=== PATIENT | male | born 1955 | race Caucasian/White ===

== ENCOUNTER 2017-04-01 15:05 | Inpatient (IN) | payer MEDICAID, OTHER ==
[~2017-04-01] VITALS: Ht 167.6 cm; Wt 66.7 kg
[2017-04-01 15:58] VITALS: BP 112/79
[2017-04-01 16:34] LABS: WHITE BLOOD COUNT (AUTO) 6.6 K/uL (4.8-10.8)
[2017-04-01 16:37] LABS: HEMATOCRIT 38.7 % (36-52); HEMOGLOBIN 12.2 g/dL (12.0-18.0); MEAN CORPUSCULAR HEMOGLOBIN 30 pg (27-31); MEAN CORPUSCULAR HGB CONC 32 g/dL (33-37); MEAN CORPUSCULAR VOLUME 96 fL (80-94); PLATELET COUNT (AUTO) 203 K/uL (140-450); RED BLOOD CELL COUNT(AUTO) 4.02 MIL/uL (4.20-6.10); RED CELL DISTRIBUTION WIDTH 14.2 % (11.6-13.7)
[2017-04-01 16:49] LABS: EOSINOPHILS % (MANUAL) 21 % (0-4); LYMPHOCYTES % (MANUAL) 12 % (20-46); MONOCYTES % (MANUAL) 5 % (5-12)
[2017-04-01 16:52] LABS: ANION GAP 13.4 (8-16); CARBON DIOXIDE 25.8 mmol/L (21-32); CREATININE 0.9 mg/dL (0.7-1.3); POTASSIUM 4.2 mmol/L (3.5-5.1)
[2017-04-01 17:01] LABS: ALBUMIN 3.4 g/dL (3.4-5.0)
--- NOTE | 2017-04-01 17:09 | NUR ---
Patient ambulated to bed 08.
--- NOTE | 2017-04-01 17:30 | NUR ---
61 M C/O 6/10 "PRESSURE" ABDOMINAL PAIN/DISTENTION X3 MONTHS AAOX4 WITH EVEN AND STEADY GAIT; LUNGS CLEAR BL; RR ARE EVEN AND UNLABORED; PT DENIES ANY FEVER, CP, SOB, OR COUGH AT THIS TIME; VSS; PATIENT POSITIONED FOR COMFORT; HOB ELEVATED; BEDRAILS UP X2; BED DOWN. ER MD MADE AWARE OF PT STATUS.
--- NOTE | 2017-04-01 18:16 | NUR ---
pt denies any pain at this time; vss; pt resting in [facility]; will continue to monitor
--- NOTE | 2017-04-01 18:23 | NUR ---
Patient going to CT via wheelchair per tech.
--- NOTE | 2017-04-01 18:32 | NUR ---
PT RETURNED FROM CT VIA W/C ACCOMPANIED BY DIRECTOR OF STRATEGIC MARKETING
--- NOTE | 2017-04-01 19:15 | NUR ---
GOT REPORT FROM CHEMA GROVER. PT. RESTING BED, NO S/SX OF DISTRESS AT THIS TIME.
[2017-04-01] MEDS ORDERED: HYDROcodone/APAP 7.5/325 MG 1 TAB PO PRN (19:20)
[2017-04-01] MEDS ORDERED: ONDANSETRON 4 MG/2 ML VIAL IVP PRN (19:20)
[2017-04-01] MEDS ORDERED: ACETAMINOPHEN 325 MG TAB PO PRN (19:20)
[2017-04-01 19:35] LABS: APPEARANCE,URINE CLEAR (CLEAR); BLOOD, URINE NEGATIVE (NEGATIVE); COLOR,URINE YELLOW (YELLOW); LEUKOCYTE ESTERASE ,URINE NEGATIVE (NEGATIVE); NITRITE, URINE NEGATIVE (NEGATIVE); PH,URINE 5.5 (5.0-9.0); UGLUCOSE NEGATIVE (NEGATIVE)
[2017-04-01 19:36] LABS: BILIRUBIN,URINE NEGATIVE (NEGATIVE)
[2017-04-01] MEDS ORDERED: ALBUTEROL SULFATE/IPRATROPIU 3 ML SOL IH PRN (19:55)
--- NOTE | 2017-04-01 20:00 | NUR ---
Patient will be admitted to care of . Admited to TELEMETRY. Will go to [id number]. Belongings list completed. Report to CHEMA SANCHEZ.
[2017-04-01 20:10] VITALS: BP 118/89
--- NOTE | 2017-04-01 20:10 | NUR ---
Admitted from ER, with chief complaint of ABD DISTENTION, DX SHORTNESS OF BREATH AND ABDOMINAL DISTENTION. ADMISSION ASSESSMENT AND HISTORY TAKEN USING DULSER PHONE, RUY, [id number]. 61 y/o, Male, Cooperative, AOX4, AMBULATORY, ABLE TO VERBALIZE NEEDS. PT C/O ABD DISTENTION THAT PT STATED TO HAVE STARTED 11 WEEKS AGO. PT REPORTS THAT HE WENT TO [facility] ER 11 WEEKS AGO WHERE THEY "TOOK OUT 10 QUARTS OF WATER FROM MY LIVER." PT DENIES CHEST PAIN, SOB OR S/S OF ACUTE DISTRESS AT THIS TIME. PT DENIES NAUSEA, VOMITING. PT STATED LAST BM THIS MORNING. IV ACCESS ASYMPTOMATIC, PATENT AND INTACT. WILL ADMINISTER MAINTENANCE FLUIDS ORDERED. DISCUSSED AND REVIEWED PLAN OF CARE WITH PT. PT ENCOURAGED TO USE IS 10X EVERY HOUR, DEMONSTRATED USE WELL. PT VERBALIZED UNDERSTANDING. oriented to call light, bed, phone,television, bathroom, smoking policy, visiting hours, procedures, ID bracelet on. Belongings list checked. ALL NEEDS MET. SAFETY MEASURES ENSURED. CALL LIGHT WITHIN REACH. WILL CONTINUE TO MONITOR.
[2017-04-01 20:26] LABS: PROTHROMBIN TIME 11.9 secs (10.8-13.4)
[2017-04-01 20:41] LABS: CHOL/HDL RATIO 4.2 (1-4.5); FREE T4 (FREE THYROXINE) 1.04 ng/dL (0.76-1.46); MAGNESIUM 1.9 mg/dL (1.8-2.4); PHOSPHORUS 3.9 mg/dL (2.5-4.9); THYROID STIMULATING HORMONE 3.73 uIU/mL (0.34-3.74)
[2017-04-01] MEDS: DOCUSATE SODIUM 100 MG GELCAP PO SCH (21:08)
[2017-04-01] MEDS: NACL 0.9% 1,000 ML IV SCH (21:16)
--- NOTE | 2017-04-01 21:17 | NUR ---
DUE MEDS ADMINISTERED WITH EDUCATION. PT VERBALIZED UNDERSTANDING, TOLERATED MEDS WELL. IVPB INFUSING WELL. ALL NEEDS MET. SAFETY MEASURES ENSURED. CALL LIGHT WITHIN REACH. WILL CONTINUE TO MONITOR.
[2017-04-01] MEDS ORDERED: cefTRIAXone 1,000 MG VIAL ONE (21:18)
[2017-04-01 22:47] LABS: BARBITURATE, URINE NEG. ng/ml (NEG <=200); BENZODIAZEPINE, URINE NEG. ng/mL (NEG <=200); CANNABINOID, URINE NEG. ng/mL (NEG <=50); COCAINE, URINE NEG. ng/mL (NEG <=300); OPIATE, URINE NEG. ng/mL (NEG <=2000); PHENCYCLIDINE SCREEN,URINE NEG. ng/mL (NEG <=25)
[2017-04-01] MEDS: FUROSEMIDE 40 MG TAB PO SCH (23:25)
[2017-04-02] VITALS: BP 107/72
--- NOTE | 2017-04-02 | NUR ---
CALLED DR KANG, CLARIFIED ORDER OF LASIX 40MG PO DUE AT THIS TIME. INSTRUCTED BY TO ASK PT IF HE TOOK LASIX AT HOME. ASKED PT IF HE TOOK LASIX AT HOME, PT STATED NO. MD TO ORDER LASIX FOR TONIGHT.
[2017-04-02] MEDS ORDERED: FUROSEMIDE 20 MG TAB PO ONE (01:00)
--- NOTE | 2017-04-02 01:11 | NUR ---
ADMINISTERED DUE MED LASIX 20MG PO ONE TIME ORDERED WITH EDUCATION. PT VERBALIZED UNDERSTANDING, TOLERATED MED WELL. ALL NEEDS MET. SAFETY MEASURES ENSURED. CALL LIGHT WITHIN REACH. WILL CONTINUE TO MONITOR.
[2017-04-02 04:00] VITALS: BP 97/68
--- NOTE | 2017-04-02 04:14 | NUR ---
PT SLEEPING COMFORTABLY. NO S/S OF ACUTE DISTRESS. IVF INFUSING WELL. ALL NEEDS MET. SAFETY MEASURES ENSURED. CALL LIGHT WITHIN REACH. WILL CONTINUE TO MONITOR.
--- NOTE | 2017-04-02 07:15 | NUR ---
ENDORSED PLAN OF CARE TO AM NURSE. CONDITION STABLE.
--- NOTE | 2017-04-02 07:16 | NUR ---
RECEIVED BEDSIDE REPORT FROM CUSTOMER EXPERT NURSE. PT AWAKE AND ALERT, NO SIGNS OF ACUTE DISTRESS. BOWEL SOUNDS ACTIVE IN ALL 4 QUADRANTS, BOWEL AND BLADDER CONTINENCE. AMBULATORY WITH BRP. SKIN INTACT WITH SCAR ON RIGHT LEG, SCD'S ON. IV PATENT AND ASYMPTOMATIC. RE-ORIENTED TO HOSPITAL AND TO UNIT, PT VERBALIZED UNDERSTANDING. BED IN LOW POSITION WITH BILATERAL HALF SIDE RAILS UP, CALL LIGHT WITHIN REACH. WILL CONTINUE TO MONITOR.
[2017-04-02] MEDS: ALBUTEROL SULFATE/IPRATROPIU 3 ML SOL IH SCH ×3 (07:19→19:25)
[2017-04-02 08:00] VITALS: BP 115/76
[2017-04-02] MEDS: DOCUSATE SODIUM 100 MG GELCAP PO SCH ×2 (08:50→20:09)
[2017-04-02] MEDS: FUROSEMIDE 40 MG TAB PO SCH (08:51)
[2017-04-02] MEDS: AZITHROMYCIN 250 MG TAB PO SCH (08:52)
[2017-04-02] MEDS: SPIRONOLACTONE 50 MG TAB PO SCH (08:52)
[2017-04-02] MEDS: PANTOPRAZOLE 40 MG INJ VIAL IVP SCH (08:53)
[2017-04-02] MEDS ORDERED: FUROSEMIDE 40 MG TAB PO SCH (09:00)
[2017-04-02] MEDS ORDERED: AZITHROMYCIN 250 MG TAB PO ONE (09:00)
[2017-04-02] MEDS ORDERED: SPIRONOLACTONE 25 MG TAB PO SCH (09:00)
[2017-04-02] MEDS: NACL 0.9% 1,000 ML IV SCH (09:00)
[2017-04-02] MEDS ORDERED: FUROSEMIDE 20 MG TAB PO SCH (09:00)
--- NOTE | 2017-04-02 10:55 | NUR ---
MADE ROUNDS. PT IS AWAKE AND ORIENTED X 4. SHOWING NO S/S OF DISCOMFORT. WILL CONTINUE TO MONITOR.
--- NOTE | 2017-04-02 11:22 | NUR ---
PATIENT HAS BEEN SCREENED AND CATEGORIZED MODERATE NUTRITION RISK. PATIENT WILL BE SEEN WITHIN 3-5 DAYS OF ADMISSION. 04/03/17-04/05/[address]
[2017-04-02 12:00] VITALS: BP 103/71
--- NOTE | 2017-04-02 12:30 | NUR ---
PT EATING LUNCH SITTING UPRIGHT IN BED. NO SIGNS OF ACUTE DISTRESS. BED IN LOW POSITION WITH BILATERAL HALF SIDE RAILS UP, CALL LIGHT WITHIN REACH. WILL CONTINUE TO MONITOR.
[2017-04-02] MEDS ORDERED: LORazepam 2 MG/ML VIAL IVP SCH (13:28)
[2017-04-02] MEDS ORDERED: HYDROmorphone 1 MG/ML AMP IVP SCH (13:28)
--- NOTE | 2017-04-02 14:30 | NUR ---
PARACENTESIS PERFORMED AT BEDSIDE WITH DR KEITA AND DR JOHNSON. 5 LITERS REMOVED AND TAKEN TO LAB. PATIENT TOLERATED PROCEDURE WELL. BED IN LOW POSITION WITH BILATERAL HALF SIDE RAILS UP, CALL LIGHT WITHIN REACH. WILL CONTINUE TO MONITOR.
--- NOTE | 2017-04-02 15:30 | NUR ---
ECHO DONE NOTIFIED ABOUT EF AND RVSP
[2017-04-02 16:00] VITALS: BP 110/75
--- NOTE | 2017-04-02 16:30 | NUR ---
PT SLEEPING, NO SIGNS OF ACUTE DISTRESS. BED IN LOW POSITION WITH BILATERAL HALF SIDE RAILS UP, CALL LIGHT WITHIN REACH. WILL CONTINUE TO MONITOR.
[2017-04-02 16:57] LABS: ALBUMIN,BODY FLUID 2.3 g/dL; GLUCOSE,BODY FLUID 113 mg/dL; LDH,BODY FLUID 75 U/L
[2017-04-02 17:59] LABS: APPEARANCE,SPUN,BODY FLUID CLEAR (CLEAR); APPEARANCE,UNSPUN,BODY FLUID HAZY (CLEAR); COLOR,BODY FLUID YELLOW (LT YELLOW); RBC, BODY FLUID 235 /cu. mm.; SPECIMENTYPE,BODY FLUID PARACENTESIS; TOTAL VOLUME,BODY FLUID 5000 mL; WBC, BODY FLUID 9 /cu. mm.
--- NOTE | 2017-04-02 18:45 | NUR ---
PT RESTING COMFORTABLY IN BED, NO SIGNS OF ACUTE DISTRESS. BED IN LOW POSITION WITH BILATERAL HALF SIDE RAILS UP. CALL LIGHT WITHIN REACH.
--- NOTE | 2017-04-02 19:25 | NUR ---
PT AWAKE AND ALERT, NO SIGNS OF ACUTE DISTRESS. ENDORSED TO ORANGE PEEL OPERATOR NURSE FOR CONTINUITY OF CARE.
--- NOTE | 2017-04-02 19:30 | NUR ---
ASSUMED CARE OF PATIENT, AWAKE, ALERT AND ORIENTED. NO COMPLAINS. NO DISTRESS. RT AT BEDSIDE FOR BREATHING TREATMENT. CARE BOARD UPDATED. PLAN OF CARE DISCUSSED WITH PATIENT, VERBALIZED UNDESTANDING WELL. CALL LIGHT WITHIN REACH.
[2017-04-02 19:43] VITALS: BP 104/66
--- NOTE | 2017-04-02 20:00 | NUR ---
VITAL SIGNS STABLE. AFEBRILE. NO COMPLAINS. CALL LIGHT WITHIN REACH.
[2017-04-02] MEDS: CARVEDILOL 3.125 MG TAB PO SCH (20:10)
[2017-04-03 00:02] VITALS: BP 111/76
--- NOTE | 2017-04-03 00:07 | NUR ---
VITAL SIGNS STABLE. AFEBRILE. NO COMPLAINS. CALL LIGHT WITHIN REACH. SLEEPING WELL.
[2017-04-03 04:13] VITALS: BP 97/64
--- NOTE | 2017-04-03 04:14 | NUR ---
SLEEPING WELL. NO COMPLAINS. CALL LIGHT WITHIN REACH. VITAL SIGNS STABLE.
[2017-04-03 05:48] LABS: HEMATOCRIT 35.9 % (36-52); HEMOGLOBIN 11.6 g/dL (12.0-18.0); MEAN CORPUSCULAR HEMOGLOBIN 31 pg (27-31); MEAN CORPUSCULAR HGB CONC 32 g/dL (33-37); MEAN CORPUSCULAR VOLUME 96 fL (80-94); PLATELET COUNT (AUTO) 173 K/uL (140-450); RED BLOOD CELL COUNT(AUTO) 3.73 MIL/uL (4.20-6.10); WHITE BLOOD COUNT (AUTO) 6.2 K/uL (4.8-10.8)
[2017-04-03 06:04] LABS: ANION GAP 13.4 (8-16); CARBON DIOXIDE 24.4 mmol/L (21-32); CREATININE 0.9 mg/dL (0.7-1.3); POTASSIUM 3.8 mmol/L (3.5-5.1)
[2017-04-03 06:14] LABS: MAGNESIUM 1.7 mg/dL (1.8-2.4); PHOSPHORUS 4.3 mg/dL (2.5-4.9)
[2017-04-03] MEDS: ALBUTEROL SULFATE/IPRATROPIU 3 ML SOL IH SCH ×3 (07:01→19:49)
[2017-04-03 07:16] LABS: EOSINOPHILS % (MANUAL) 20 % (0-4); LYMPHOCYTES % (MANUAL) 11 % (20-46); MONOCYTES % (MANUAL) 6 % (5-12)
--- NOTE | 2017-04-03 07:22 | NUR ---
ENDORSED CARE AT BEDSIDE WITH SMITA BEAR, PATIENT IN STABLE CONDITION.
--- NOTE | 2017-04-03 07:23 | NUR ---
RECEIVED REPORT FROM PM NURSE. PT IS AWAKE AND ALERT AND ORIENTED X 4. PT SHOWING NO SIGNS OF ACUTE DISTRESS. IV ACCESS IS PATENT, AND ASYMPTOMATIC. BOWEL SOUNDS PRESENT ON ALL FOUR QUADRANTS. AMBULATORY WITH URINAL WITHIN REACH. SKIN IS INTACT, BANDAGE COVERING RIGHT LOWER QUADRANT, NO DRAINAGE NOTED. PT DENIES PAIN. PLAN OF CARE DISCUSSED, PT VERBALIZED UNDERSTANDING. BED ON LOW POSITION, CALL LIGHT WITHIN REACH. BILATERAL HALF SIDE RAILS UP. WILL CONTINUE TO MONITOR.
[2017-04-03 08:00] VITALS: BP 95/62
[2017-04-03] MEDS: SPIRONOLACTONE 50 MG TAB PO SCH (08:42)
[2017-04-03] MEDS: PANTOPRAZOLE 40 MG INJ VIAL IVP SCH (08:42)
[2017-04-03] MEDS: FUROSEMIDE 40 MG TAB PO SCH (08:43)
[2017-04-03] MEDS: AZITHROMYCIN 250 MG TAB PO SCH (08:43)
[2017-04-03] MEDS: DOCUSATE SODIUM 100 MG GELCAP PO SCH ×2 (08:43→20:28)
[2017-04-03] MEDS: CARVEDILOL 3.125 MG TAB PO SCH ×2 (08:51→20:32)
--- NOTE | 2017-04-03 08:51 | NUR ---
HELD COREG, PT BP IS 95/62, PULSE 61
--- NOTE | 2017-04-03 09:30 | NUR ---
DR JOHNSON AT BEDSIDE, PT RESTING COMFORTABLY. BED IN LOW POSITION WITH BILATERAL HALF SIDE RAILS UP, CALL LIGHT WITHIN REACH. WILL CONTINUE TO MONITOR.
--- NOTE | 2017-04-03 11:30 | NUR ---
SPUTUM COLLECTED AND TAKEN TO LAB. PT RESTING COMFORTABLY IN BED, NO SIGNS OF ACUTE DISTRESS. BED IN LOW POSITION, CALL LIGHT WITHIN REACH. WILL CONTINUE TO MONITOR.
[2017-04-03 12:00] VITALS: BP 105/76
--- NOTE | 2017-04-03 12:33 | NUR ---
PATIENT WITH LUNCH TRAY AT THIS TIME NO SOB NOTED WOOD HEEL FLAP RUBBER TO ATTEMPT HHN THREAPY AT A LATER TIME
--- NOTE | 2017-04-03 13:13 | NUR ---
TOLERATED INCENTIVE SPIROMETRY THERAPY WELL WITHOUT INCIDENT ENCOURAGED PATIENT WITH ACKNOWLEDGEMENT TO USE INCENTIVE SPIROMETRY EVERY 1-2 HOURS WHILE AWAKE
[2017-04-03] MEDS ORDERED: MAGNESIUM OXIDE 400 MG TAB PO SCH (14:15)
--- NOTE | 2017-04-03 14:30 | NUR ---
PT IS STABLE, SITTING UPRIGHT WATCHING TV SHOWING NO SIGNS OF ACUTE DISTRESS. BED ON LOW POSITION, CALL LIGHT WITHIN REACH. WILL CONTINUE TO MONITOR.
[2017-04-03] MEDS: NACL 0.9% 1,000 ML IV SCH (15:19)
[2017-04-03 16:00] VITALS: BP 97/61
--- NOTE | 2017-04-03 18:03 | NUR ---
PT SITTING UPRIGHT IN BED, EATING DINNER. BED ON LOW POSITION, BILATERAL HALF SIDE RAILS UP, CALL LIGHT WITHIN REACH. WILL CONTINUE TO MONITOR.
--- NOTE | 2017-04-03 19:10 | NUR ---
PT AWAKE AND ALERT, NO SIGNS OF ACUTE DISTRESS. ENDORSED TO CREMATORIUM OPERATOR NURSE FOR CONTINUITY OF CARE. BED IN LOW POSITION WITH BILATERAL HALF SIDE RAILS UP, CALL LIGHT WITHIN REACH.
--- NOTE | 2017-04-03 19:20 | NUR ---
RECEIVED PT AWAKE ON HIGH FOWLERS POSITION WATCHING TV, VITAL SIGNS STABLE, DENIES ANY PAIN, NO SOB NOTED, ABDOMEN DISTENDED BUT SOFT, POSITIVE BOWEL SOUNDS, PARACENTESIS SITE BANDAGE TO RT LOWER ABDOMEN DRY AND INTACT, NO DRAINAGE OR BLEEDING NOTED, IVF INFUSING WELL, SAFETY MEASURES IN PLACE, CALL LIGHT WITHIN REACH.
[2017-04-03 20:00] VITALS: BP 102/66
--- NOTE | 2017-04-03 20:30 | NUR ---
DUE MEDICATIONS ADMINISTERED, ALL NEEDS ATTENDED.
--- NOTE | 2017-04-03 22:10 | NUR ---
PT VOIDING FREELY PER URINAL, CLEAR YELLOW OUTPUT NOTED, NO SOB AT THIS TIME, MONITORED CLOSELY.
[2017-04-04] VITALS: BP 96/64
--- NOTE | 2017-04-04 | NUR ---
PT SLEEPING, EASILY AROUSABLE, VITAL SIGNS STABLE, NO SIGNS OF PAIN OR SOB, PROVIDED WARM BLANKET REQUESTED, CONTINUE TO MONITOR CLOSELY.
[2017-04-04 04:00] VITALS: BP 90/60
--- NOTE | 2017-04-04 04:00 | NUR ---
PT SLEEPING, EASILY AROUSABLE, VITAL SIGNS STABLE, NO SIGNS OF PAIN OR SOB, CAN CHANGE POSITION INDEPENDENTLY, MONITORED CLOSELY.
[2017-04-04 05:40] LABS: HEMATOCRIT 36.5 % (36-52); HEMOGLOBIN 11.8 g/dL (12.0-18.0); MEAN CORPUSCULAR HEMOGLOBIN 32 pg (27-31); MEAN CORPUSCULAR HGB CONC 32 g/dL (33-37); MEAN CORPUSCULAR VOLUME 97 fL (80-94); PLATELET COUNT (AUTO) 165 K/uL (140-450); RED BLOOD CELL COUNT(AUTO) 3.76 MIL/uL (4.20-6.10); RED CELL DISTRIBUTION WIDTH 13.8 % (11.6-13.7); WHITE BLOOD COUNT (AUTO) 6.3 K/uL (4.8-10.8)
[2017-04-04 06:05] LABS: ANION GAP 11.8 (8-16); CREATININE 0.9 mg/dL (0.7-1.3); POTASSIUM 3.8 mmol/L (3.5-5.1)
[2017-04-04 06:19] LABS: MAGNESIUM 1.7 mg/dL (1.8-2.4); PHOSPHORUS 4.4 mg/dL (2.5-4.9)
--- NOTE | 2017-04-04 07:20 | NUR ---
PT AWAKE, NO SIGNS OF DISTRESS, REPORT GIVEN TO CHEMA ACUNA FOR CONTINUITY OF CARE.
[2017-04-04] MEDS: ALBUTEROL SULFATE/IPRATROPIU 3 ML SOL IH SCH ×3 (07:25→19:07)
--- NOTE | 2017-04-04 07:25 | NUR ---
RECEIVED PATIENT AT BEDSIDE FROM NIGHT NURSE. PATIENT IS AAOX4, GERMAN SPEAKER AND SHOW NO S/S OF ACUTE DISTRESS ON ROOM AIR. DENIES PAIN. PATIENT HAS INCISION FROM PARACENTESIS DONE ON THE 04/02/17 NOTED DRESSING ON THE ABD RLQ. IV NOTED ON THE R AC WITH IVF'S INFUSING WELL. PATIENT ON TELE MONITOR. PATIENT WAS EDUCATED ON POC FOR TODAY AND VERBALIZED UNDERSTANDING. PATIENT AWARE OF HOW TO USE THE CALL LIGHT FOR NEEDED ASSISTANCE. THE BED IS LOWERED WITH CALL LIGHT WITHIN REACH.
[2017-04-04 07:46] LABS: EOSINOPHILS % (MANUAL) 17 % (0-4); LYMPHOCYTES % (MANUAL) 24 % (20-46); MONOCYTES % (MANUAL) 5 % (5-12)
[2017-04-04 08:00] VITALS: BP 102/60
[2017-04-04] MEDS: DOCUSATE SODIUM 100 MG GELCAP PO SCH ×2 (08:57→20:34)
[2017-04-04] MEDS: AZITHROMYCIN 250 MG TAB PO SCH (08:58)
[2017-04-04] MEDS: FUROSEMIDE 40 MG TAB PO SCH (08:58)
[2017-04-04] MEDS: PANTOPRAZOLE 40 MG INJ VIAL IVP SCH (08:58)
[2017-04-04] MEDS: SPIRONOLACTONE 50 MG TAB PO SCH (08:58)
[2017-04-04] MEDS: CARVEDILOL 3.125 MG TAB PO SCH ×2 (08:58→20:27)
--- NOTE | 2017-04-04 09:00 | NUR ---
ADMINISTERED SCHEDULED MEDICATIONS. PATIENT TOLERATED ACTIVITY WELL. PATIENT NEEDS MET AT THIS TIME. THE BED IS LOWERED WITH CALL LIGHT WITHIN REACH. PATIENT REFUSED SCD'S AT THIS TIME AND IS SITTING ON THE BEDSIDE WITH BEDSIDE TABLE AND CALL LIGHT WITHIN REACH AND WATCHING TV. PATIENT DENIES PAIN AND SOB. WILL CONTINUE TO MONITOR.
--- NOTE | 2017-04-04 11:00 | NUR ---
PATIENT IS SITTING AT BEDSIDE WATCHING TV. PATIENT DENIES PAIN. PATIENT IS AAOX4 AND SHOWS NO S/S OF ACUTE DISTRESS. THE BED IS LOWERED WITH CALL LIGHT WITHIN REACH.
[2017-04-04 11:30] VITALS: BP 109/73
--- NOTE | 2017-04-04 11:36 | NUR ---
SPECIMEN CUP PLACED AT PT BEDSIDE AND EXPLAINED THE NEED FOR SPUTUM SAMPLE PT STATES UNDERSTANDING UNABLE TO EXPECTORATE AT THIS TIME WILL CHECK BACK AT LATER TIME.
--- NOTE | 2017-04-04 13:02 | NUR ---
PATIENT IS STILL ON THE BEDSIDE WATCHING TV AND DENIES PAIN AND SOB. THE BED IS LOWERED WITH CALL LIGHT WITHIN REACH.
--- NOTE | 2017-04-04 13:38 | NUR ---
04/04/17 RD INITIAL ASSESSMENT COMPLETED PLEASE REFER TO NUTRITION ASSESSMENT UNDER CARE ACTIVITY FOR ESTIMATED NUTRITIONAL NEEDS. 1. CONTINUE HEPATIC DIET 2. RD TO FOLLOW-UP 3-5 DAYS, MODERATE RISK LUCIEN LENNON RD
--- NOTE | 2017-04-04 15:00 | NUR ---
PATIENT SHOWS NO S/S OF ACUTE DISTRESS ON ROOM AIR. PATIENT DENIES PAIN. THE BED IS LOWERED WITH CALL LIGHT WITHIN REACH. PATIENT NEEDS ARE MET. PATIENT IS WATCHING TV.
[2017-04-04 16:00] VITALS: BP 99/62
[2017-04-04] MEDS: NACL 0.9% 1,000 ML IV SCH (16:10)
[2017-04-04] MEDS ORDERED: MAGNESIUM OXIDE 400 MG TAB PO SCH (16:30)
--- NOTE | 2017-04-04 17:12 | NUR ---
PATIENT DENIES PAIN AND SHOWS NO S/S OF ACUTE DISTRESS. PATIENT IS AAOX4 AND IS WATCHING TV. PATIENT NEEDS ARE MET AT THIS TIME. THE BED IS LOWERED WITH CALL LIGHT WITHIN REACH. WILL ENDORSE CONTINUITY OF CARE TO NIGHT NURSE.
--- NOTE | 2017-04-04 19:20 | NUR ---
GAVE REPORT TO NIGHT NURSE AT BEDSIDE. ENDORSED PATIENT IN STABLE CONDITION.
--- NOTE | 2017-04-04 19:40 | NUR ---
RECEIVED HANDOFF REPORT FROM AM RN. PATIENT A&OX4. IV SITE PATENT AND INTACT. PATIENT DENIES PAIN. NO SIGNS AND SYMPTOMS OF ACUTE DISTRESS. SAFETY MEASURES ENSURED. CALL LIGHT WITHIN REACH. WILL CONTINUE TO MONITOR.
[2017-04-04] MEDS ORDERED: cefTRIAXone 1,000 MG VIAL ONE (20:24)
--- NOTE | 2017-04-04 22:05 | NUR ---
ENDORSED PLAN OF CARE TO NIGHT CHEMA VILLARREAL WILL CONTINUE TO MONITOR.
--- NOTE | 2017-04-04 22:10 | NUR ---
RECEIVED REPORT FROM NIGHT NURSE. PT RESTING IN BED, AOX4, AMBULATORY, ABLE TO VERBALIZE NEEDS. ABD DRESSING TO RLQ CLEAN DRY AND INTACT. PT DENIES CHEST PAIN, SOB OR S/S OF ACUTE DISTRESS. DISCUSSED AND REVIEWED PLAN OF CARE WITH PT. PT VERBALIZED UNDERSTANDING. ALL NEEDS MET. SAFETY MEASURES ENSURED. CALL LIGHT WITHIN REACH. WILL CONTINUE TO MONITOR.
[2017-04-05] VITALS: BP 93/58
--- NOTE | 2017-04-05 01:00 | NUR ---
PT SLEEPING COMFORTABLY. IVF INFUSING WELL. ALL NEEDS MET. SAFETY MEASURES ENSURED. CALL LIGHT WITHIN REACH. WILL CONTINUE TO MONITOR.
--- NOTE | 2017-04-05 04:15 | NUR ---
PT SLEEPING COMFORTABLY. IVF INFUSING WELL. ALL NEEDS MET. SAFETY MEASURES ENSURED. CALL LIGHT WITHIN REACH. WILL CONTINUE TO MONITOR.
[2017-04-05 06:41] LABS: HEMATOCRIT 33.9 % (36-52); HEMOGLOBIN 11.2 g/dL (12.0-18.0); MEAN CORPUSCULAR HEMOGLOBIN 32 pg (27-31); MEAN CORPUSCULAR HGB CONC 33 g/dL (33-37); MEAN CORPUSCULAR VOLUME 95 fL (80-94); PLATELET COUNT (AUTO) 174 K/uL (140-450); RED BLOOD CELL COUNT(AUTO) 3.56 MIL/uL (4.20-6.10); RED CELL DISTRIBUTION WIDTH 13.6 % (11.6-13.7); WHITE BLOOD COUNT (AUTO) 6.3 K/uL (4.8-10.8)
[2017-04-05] MEDS: ALBUTEROL SULFATE/IPRATROPIU 3 ML SOL IH SCH ×2 (06:41→12:39)
[2017-04-05 07:04] LABS: ANION GAP 8.8 (8-16); CREATININE 0.9 mg/dL (0.7-1.3); POTASSIUM 3.8 mmol/L (3.5-5.1)
--- NOTE | 2017-04-05 07:15 | NUR ---
ENDORSED PLAN OF CARE TO AM NURSE. CONDITION STABLE.
--- NOTE | 2017-04-05 07:20 | NUR ---
RECEIVED PATIENT REPORT AT BEDSIDE FROM NIGHT NURSE. PATIENT IS AAOX4 AND SHOWS NO S/S OF ACUTE DISTRESS ON ROOM AIR. PATIENT HAS NOTED DRESSING ON THE ABD RLQ CLEAN DRY AND INTACT. PATIENT DENIES PAIN AT THIS TIME. IV NOTED ON THE R AC WITH IVF'S INFUSING WELL. PATIENT WAS EXPLAINED POC FOR TODAY AND VERBALIZED UNDERSTANDING. PATIENT IS AWARE OF HOW TO USE THE CALL LIGHT FOR ASSISTANCE. THE BED IS LOWERED WITH CALL LIGHT WITHIN REACH.
[2017-04-05 08:00] VITALS: BP 98/64
[2017-04-05 08:01] LABS: BASOPHILS % (MANUAL) 1 % (0-2)
[2017-04-05 08:02] LABS: EOSINOPHILS % (MANUAL) 21 % (0-4); LYMPHOCYTES % (MANUAL) 14 % (20-46); MONOCYTES % (MANUAL) 11 % (5-12)
[2017-04-05] MEDS: SPIRONOLACTONE 50 MG TAB PO SCH (09:00)
[2017-04-05] MEDS: CARVEDILOL 3.125 MG TAB PO SCH (09:00)
[2017-04-05] MEDS: AZITHROMYCIN 250 MG TAB PO SCH (09:20)
[2017-04-05] MEDS: DOCUSATE SODIUM 100 MG GELCAP PO SCH (09:21)
--- NOTE | 2017-04-05 09:21 | NUR ---
INSTRUCTOR RIC RUSS RN AND STUDENT NURSE VAISHNAVI ADMINISTERED SCHEDULED MEDICATIONS. PATIENT TOLERATED ACTIVITY WELL. PATIENT DENIES PAIN. ALL PATIENT'S NEEDS ARE MET AT THIS TIME. THE BED IS LOWERED WITH CALL LIGHT WITHIN REACH.
[2017-04-05] MEDS: FUROSEMIDE 40 MG TAB PO SCH (09:22)
[2017-04-05] MEDS: PANTOPRAZOLE 40 MG INJ VIAL IVP SCH (09:22)
--- NOTE | 2017-04-05 10:30 | NUR ---
PATIENT VOIDED 625 CC OF CLEAR YELLOW URINE. PATIENT DENIES PAIN WILL CONTINUE TO MONITOR.
--- NOTE | 2017-04-05 11:56 | NUR ---
PATIENT IS IN BED WATCHING TV AND SHOWS NO S/S OF ACUTE DISTRESS ON ROOM AIR.
[2017-04-05] MEDS ORDERED: SPIR50TA PO (12:10)
[2017-04-05] MEDS ORDERED: FURO40TA9 PO (12:10)
[2017-04-05] MEDS ORDERED: CLIN150C15 PO (12:26)
[2017-04-05] MEDS ORDERED: LEVO750T2 PO (12:26)
[2017-04-05] MEDS ORDERED: CARV3.122 PO (13:22)
[2017-04-05] MEDS ORDERED: LEVOFLOXACIN 750 MG TAB PO SCH (14:00)
--- NOTE | 2017-04-05 14:00 | NUR ---
PATIENT IS IN BED WATCHING TV AND SHOWS NO S/S OF ACUTE DISTRESS ON ROOM AIR. WILL CONTINUE TO MONITOR.
[2017-04-05 16:00] VITALS: BP 97/65
--- NOTE | 2017-04-05 16:21 | NUR ---
PATIENT AMB TO BR WITH STEADY GAIT. PATIENT DENIES PAIN AND SHOWS NO S/S OF ACUTE DISTRESS ON ROOM AIR. WILL CONTINUE TO MONITOR.
--- NOTE | 2017-04-05 17:28 | NUR ---
PATIENT HAS BEEN DISCHARGED ALL DISCHARGE INSTRUCTIONS GIVEN AND ALL PAPERWORK WAS SIGNED. ALL QUESTIONS ANSWERED. PATIENT VERBALIZED UNDERSTANDING. ALL BELONGINGS IN PATIENTS POSSESSION. IV DISCONTINUED WITH CANNULA INTACT. WRISTBANDS REMOVED. PATIENT LEFT UNIT IN WHEEL CHAIR IN STABLE CONDITION. PATIENT IS AAOX4 AND SHOWS NO S/S OF ACUTE DISTRESS.
[2017-04-05] MEDS ORDERED: CLINDAMYCIN 150 MG CAP PO SCH (18:00)
[2017-04-06] MEDS ORDERED: LEVOFLOXACIN 750 MG TAB PO SCH (09:00)
== END 2017-04-05 17:28 | disposition home or self-care (01) | DRG 137 ==
LOC: MED 15:05 → MTU 19:23
PROVIDERS: ADMIT Family Medicine; ATTEND Family Medicine
PROC: 0W9G3ZZ Drainage of Peritoneal Cavity, Percutaneous Approach (ICD-10-PCS; principal; 2017-04-02)
DX: J69.0 Pneumonitis due to inhalation of food and vomit (principal); N17.0 Acute kidney failure with tubular necrosis; J96.00 Acute respiratory failure, unspecified whether with hypoxia or hypercapnia; I50.41 Acute combined systolic (congestive) and diastolic (congestive) heart failure; K65.9 Peritonitis, unspecified; C78.6 Secondary malignant neoplasm of retroperitoneum and peritoneum; R18.8 Other ascites; I42.0 Dilated cardiomyopathy; K76.81 Hepatopulmonary syndrome; C80.1 Malignant (primary) neoplasm, unspecified; K74.60 Unspecified cirrhosis of liver; K40.20 Bilateral inguinal hernia, without obstruction or gangrene, not specified as recurrent; Z71.41 Alcohol abuse counseling and surveillance of alcoholic; F10.20 Alcohol dependence, uncomplicated
CPT/HCPCS: 36415; 71020; 74000; 76705; 80048; 80053; 80305; 81003; 82140; 82150; 82945; 83036; 83605; 83615; 83690; 83735; 83880; 84100; 84157; 84439; 84443; 84484; 85025; 85610; 85730; 87040; 87070; 87075; 87081; 87205; 89051; 93005; 94640; 99285; C9113; G0482; J0696; J1170; J2060; J7030; J7060; J7620; Q0092; Q9967